=== PATIENT | female | born 1965 | race Two or more races ===

== ENCOUNTER 2016-06-16 09:05 | Emergency (ER) | payer OTHER ==
[~2016-06-16] VITALS: Ht 160 cm; Wt 68.0 kg
[2016-06-16 09:10] VITALS: Ht 160 cm; Wt 68.0 kg
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
[2016-06-16 09:25] LABS: ADD SCAN DIFF NO
[2016-06-16 09:28] LABS: BASOPHIL # 0.1 10^3/ul (0.0-0.1); BASOPHILS % 0.8 % (0.0-2.0); EOSINOPHILS # 0.1 10^3/ul (0.0-0.5); EOSINOPHILS % 1.3 % (0.0-7.0); HEMATOCRIT 41.8 % (37.0-47.0); HEMOGLOBIN 13.4 g/dl (12.0-16.0); LYMPHOCYTES # 2.6 10^3/ul (0.8-2.9); LYMPHOCYTES % 40.2 % (15.0-51.0); MEAN CORPUSCULAR HEMOGLOBIN 29.9 pg (29.0-33.0); MEAN CORPUSCULAR HGB CONC 32.1 g/dl (32.0-37.0); MEAN CORPUSCULAR VOLUME 93.3 fl (82.0-101.0); MEAN PLATELET VOLUME 10.7 fl (7.4-10.4); MONOCYTE # 0.4 10^3/ul (0.3-0.9); MONOCYTES % 6.6 % (0.0-11.0); NEUTROPHIL # 3.2 10^3/ul (1.6-7.5); NEUTROPHILS % 50.9 % (39.0-77.0); PLATELET COUNT 292 10^3/UL (140-415); RED BLOOD COUNT 4.48 10^6/ul (4.20-5.40); RED CELL DISTRIBUTION WIDTH 12.3 % (11.5-14.5); WHITE BLOOD COUNT 6.4 10^3/ul (4.8-10.8)
[2016-06-16 09:49] LABS: ALANINE AMINOTRANSFERASE 27 IU/L (13-69); ALBUMIN 4.3 g/dl (3.3-4.9); ALKALINE PHOSPHATASE 70 IU/L (42-121); ASPARTATE AMINO TRANSFERASE 22 IU/L (15-46); BILIRUBIN,INDIRECT 0.2 mg/dl (0-1.1); BILIRUBIN,TOTAL 0.2 mg/dl (0.2-1.3); TOTAL PROTEIN 7.3 g/dl (6.1-8.1)
== END 2016-06-16 09:35 | disposition home or self-care (01) ==
LOC: E/R 09:05
DX: S61.431A Puncture wound without foreign body of right hand, initial encounter (principal); W27.3XXA Contact with needle (sewing), initial encounter; Y92.9 Unspecified place or not applicable
CPT/HCPCS: 80076; 85025; 86703; 86706; 86803; 87340; 99283

== ENCOUNTER 2016-07-08 19:30 | Emergency (ER) | payer BC, OTHER ==
[~2016-07-08] VITALS: Ht 162.6 cm; Wt 67.5 kg
[2016-07-08 20:05] VITALS: Ht 162.6 cm; Wt 67.5 kg
[2016-07-08] MEDS ORDERED: ONDANSETRON (ODT) 4 MG TAB ODT STA (21:19)
[2016-07-08] MEDS ORDERED: HYDROCODONE/APAP (5/325) TAB PO ONE (21:30)
[2016-07-08] MEDS ORDERED: ONDA4TAB14 PO (22:15)
[2016-07-08] MEDS ORDERED: HYDR-906 PO (22:15)
--- NOTE | 2016-07-09 18:13 | ERD ---
ER Documentation Chief Complaint Date/Time DATE: 07/09/16 TIME: 17:56 Chief Complaint migraine headache/nausea/vomiting since yesterday HPI This is a 51 year old female who presents to the ED with headache and vomiting since yesterday. Pt has a history of migraine TORO that is controlled by maxalt. Pt states that the migraine started yesterday but the maxalt was ineffective even after 2 doses. Pt then started to vomit with clear-colored emesis. Pt 5 episodes of vomiting last night and is unable to tolerate fluids since then. Pt' s migraine is intermittent and is localized on the right frontal area. Pt does not take any other medications except for maxalt. Denies any fever, chills, dizziness, shortness of breath, vision changes, rhinorrhea or focal weakness. No other medical history reported. No recent sick contacts or foreign travel. ROS All systems reviewed and are negative except as per history of present illness. Medications Home Meds Active Scripts Hydrocodone/Acetaminophen ([place] 5-325 Tablet) 1 Each Tablet, 1 TAB PO Q6H Y for PAIN, #7 TAB Prov:LAYLA DOWNEY 07/08/16 Ondansetron (Ondansetron Odt) 4 Mg Tab.rapdis, 4 MG PO Q6H Y for NAUSEA AND/OR VOMITING, #10 TAB Prov:LAYLA DOWNEY 07/08/16 Allergies Allergies: Coded Allergies: No Known Drug Allergy (Verified Allergy, Unknown, 07/08/16) PMhx/Soc History of Surgery: No Anesthesia Reaction: No Hx Neurological Disorder: No Hx Respiratory Disorders: No Hx Cardiac Disorders: No Hx Psychiatric Problems: No Hx Alcohol Use: No Hx Substance Use: No Hx Tobacco Use: No Smoking Status: Never smoker Physical Exam Vitals Vital Signs Date Time Temp Pulse Resp B/P Pulse Ox O2 Delivery O2 Flow Rate FiO2 07/08/16 20:05 98.2 80 20 115/70 97 Physical Exam Physical Exam CONST: Well-developed, well-nourished, in no acute distress. Nontoxic in appearance. HEENT: Atraumatic. Normal conjunctiva. EOM intact. TM intact. External ear is normal. Clear oropharynx without erythema. No uvular deviation. Moist mucous membranes. Supple neck. No meningismus. No submandibular induration. RESP: Clear to auscultation bilaterally. No wheezing. CARDIO: Regular rate and rhythm, no murmurs. ABD: Soft, non tender, non distended. Normal bowel sounds. No McBurney' s point tenderness. No guarding or rigidity. No peritoneal signs. SKIN: No petechiae or rashes. BACK: No midline or flank tenderness. EXT: No cyanosis or edema. Distal pulses equal and bilateral. NEURO: Awake and alert, appropriate for age. 5/5 strength in all extremities. Normal speech. Steady gait. Results 24 hrs Current Medications Medications (Trade) Dose Ordered Sig/Giovanni Route PRN Reason Start Time Stop Time Status Last Admin Dose Admin Ondansetron HCl (Zofran Odt) 4 mg ONCE STAT ODT 07/08/16 21:19 07/08/16 21:22 DC 07/08/16 21:27 Acetaminophen/ Hydrocodone Bitart ([place] (5/325)) 1 tab ONCE ONCE PO 07/08/16 21:30 07/08/16 21:31 DC 07/08/16 21:27 Procedures/MDM EMERGENCY DEPARTMENT COURSE/MEDICAL DECISION MAKING This is a 51 year old female who comes to the emergency room secondary to complaints of migraine headache and vomiting since yesterday. Abdominal exam and neuro exam are unremarkable. Pt is afebrile and appears nontoxic. The patient was given norco and zofran in the department. On re-evaluation, the patient's headache and nausea improved. I believe the vomiting episode is caused by her uncontrolled migraine headache. Pt's migraine was resolved after receiving norco in ED. My primary diagnosis is vomiting. Secondary diagnosis is headache Differential diagnoses considered but not limited to headache disorders, gastroenteritis, cholecystitis, appendicitis, diverticulitis. Pt is hemodynamically stable upon reassessment. There are no new complaints during the ED course. The patient was discharged for outpatient management with a prescription for norco and zofran. The patient was advised to followup with their PMD in 1-2 days and to return to the Emergency Department if there are any new or worsening symptoms. The patient understood and agreed with the diagnosis, treatment and plan. Patient is stable for discharge at this time. Departure Diagnosis: Primary Impression: Migraine Additional Impression: Nausea & vomiting Condition: Stable Patient Instructions: Nausea and Vomiting-Adult Additional Instructions: Call your primary care doctor tomorrow for an appointment during the next 1-2 days. Return to the emergency department immediately should you have any new or worsening symptoms. Take all medications as directed. LAYLA DOWNEY July 09, 2016 18:13
== END 2016-07-08 22:23 | disposition home or self-care (01) ==
LOC: FTE 19:30
DX: G43.909 Migraine, unspecified, not intractable, without status migrainosus (principal); R11.2 Nausea with vomiting, unspecified
CPT/HCPCS: 99284

== ENCOUNTER 2018-03-11 19:32 | Emergency (ER) | payer BC ==
[~2018-03-11] VITALS: Ht 162.6 cm; Wt 65.2 kg
[~2018-03-11 19:32] MED LIST: HYDR-4011 PO; ONDA4TAB14 PO
[2018-03-11 19:49] VITALS: BP 143/80; PULSE 85; RESP 18; Ht 162.6 cm; Wt 65.2 kg
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
[2018-03-11] MEDS ORDERED: CYCL10TA7 PO (22:01)
[2018-03-11] MEDS ORDERED: IBUP-1542 PO (22:01)
[2018-03-11] MEDS ORDERED: HYDR-4011 PO (22:01)
== END 2018-03-11 22:36 | disposition home or self-care (01) ==
LOC: FTE 19:32
DX: S16.1XXA Strain of muscle, fascia and tendon at neck level, initial encounter (principal); S20.219A Contusion of unspecified front wall of thorax, initial encounter; S80.02XA Contusion of left knee, initial encounter; V47.9XXA Unspecified car occupant injured in collision with fixed or stationary object in traffic accident, initial encounter
CPT/HCPCS: 71046; 71110; 72040; 72072